=== PATIENT | male | born 1960 | race Caucasian/White ===

== ENCOUNTER → 2018-10-07 11:57 | Outpatient (BNV) | payer MEDICARE, MEDICAID, SELFPAY ==
--- NOTE | 2018-10-07 11:57 | AM.PHNO ---
Nursing Note Late entry for 10/05/18- PROFESSOR OF KINESIOLOGY called patient and left a message to notify he has earned healthy bucks for the [facility] [employer] and encouraged him to attend 10/06/18 so he can pharmacy picking tech his healthy bucks and utilize them to purchase produce.
--- NOTE | 2018-10-12 14:15 | PR.OPPALCARP ---
OP Palliative Care [facility] Patient Health History List Name, Facility and location of PCP: [place] [facility] Palliative Care Assessment Prognosis: Fair [facility] Advance Care Planning Primary Medical Surrogate Decision Maker?: Yes Existing Advance Directive: No POLST Form: No [facility] PC Jukebox Operator Assessmen List Name, Facility and location of PCP: [place] Patient Diagnosis: Tonsil Cancer Prognosis: Fair Current goal of care: Life-prolonging Mental Status: Alert and Oriented Coping Status: Coping well Learning needs: Motivational Home situation: Patient live alone. Patient has a dog as his cant hooker. Support System: Good Financial Status: Marginal [facility] Patient/Family Meeting Care Conf Coordinator: Renae Brice date/time/location: 09/20/2018 3:[facility] Patient Diagnosis: Tonsil Cancer Purpose of meeting: Palliative care follow-up/symptom management Participants in meeting and relationship: Navin Rico, patient Serenity, granddaughter Beatriz Dietitian, Dietitian JENIFFER Frederick RN Dr. Owen Kim How are patients wishes known: Patient cognitive/verbal Who is the decision maker for the patient: Patient Discussion/Outcomes/Follow-up: This is a 57 year old, single, male who presented to his Follow-up Palliative Care Meeting with his granddaughter, Rosalind. Patient ambulated independently to the appointment. Patient was A&Ox3. Patient made good eye contact. Patient mood and affect was within normal limits, and thought process was congruent with thought content. Patient reported he continues to reside alone with his dog, Lex. Patient reported he had stopped smoking for about 5 weeks and recently began smoking again about 2 weeks ago. Patient also shared he went to an appointment at [facility] and he was told that he was not a good candidate for surgery due to patient being underweight. Patient reported they would like him to gain 20-30 pounds first. Patient reported he is willing to try anything in order to get his weight up. Patient had no falls to report. Patient reported he tries to walk 3 miles a day. Patient reported some of his coping strategies include reading a book and playing video games. Patient reported it helps his mind. Patient reported sometimes he does feel down because he cannot do the things he use to do, but he is not feeling depressed. Patient reported it does not occur often. Patient reported he has good support system. 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 Patient is active in the community. Patient discussed nutritional problems to the team, which the dietitian addressed. Patient diet consists of liquid smoothies. MARBLE MACHINE TENDER informed patient his name was entered to receive healthy bucks to use at the hospital [email or web address]. Patient shared he utilized the [employer] resources provided during the last encounter. Patient receptive to receiving additional [employer] coupons. Patient reported he is also in the process of fixing his medi-neel as he was told he was on the wrong one and found out during a phone interview he had to update his information. Patient hoping that with the medi-neel change he would be able to receive the original tube feeding formula or attempt to get the [employer] Blend. Patient reported changes will take effect as of October 17. Patient discussed need for possible physical therapy. Patient reported he was not happy with the location he was receiving the services. MARBLE MACHINE TENDER encouraged patient to look into other physical therapy locations in town and provided him the information as they also take his insurance. Patient reported he also had an increase to his food stamps when he was on the phone with the medi-neel worker. Patient provided with the following resources: Warm line brochure and [facility] resources, services, and opportunities, [facility] support group calendar, food bank distribution center locations, [employer] pamphlet, and A-Z stress management and coping skills. See Margarette Howell, RN note for further nursing evaluation and medical concerns. See Chanell Mckinney, Advertising Sales Executive notes for further recommendations and counseling on nutrition. [facility] Care Plan Follow-up Advanced Directive: No POLST Form: No Primary Medical Surrogate Decision Maker?: Yes List Name, Facility and location of PCP: [place] *[facility] Office Visit complete [facility] Offive Visit Complete [facility] Visit Complete?: No